=== PATIENT | male | born 1980 | race Caucasian/White ===

== ENCOUNTER 2022-08-24 15:57 | Emergency (ER) | payer OTHER ==
[2022-08-24 16:12] VITALS: BP 118/74; PULSE 88; RESP 18; TEMP 98; BMI 22.3
[2022-08-24] MEDS ORDERED: METHOCARBAMOL 500 MG TABLET PO ONE (16:53)
[2022-08-24] MEDS ORDERED: KETOROLAC TROMETHAMINE 30 MG/1 ML VIAL IM ONE (16:53)
[2022-08-24] MEDS ORDERED: METHOCARBAMOL 500 MG TABLET ONE (16:55)
[2022-08-24] MEDS ORDERED: KETOROLAC TROMETHAMINE 30 MG/1 ML VIAL ONE (16:55)
== END 2022-08-24 17:28 | disposition home or self-care (01) ==
LOC: JERFT 15:57
PROC: 3E0233Z Introduction of Anti-inflammatory into Muscle, Percutaneous Approach (ICD-10-PCS; principal; 2022-08-24)
DX: M54.2 Cervicalgia (principal); M54.50 Low back pain, unspecified; V43.62XA Car passenger injured in collision with other type car in traffic accident, initial encounter
CPT/HCPCS: 72050-TC-FY; 99284-25

== ENCOUNTER 2024-05-16 10:44 | Emergency (ER) | payer OTHER ==
[2024-05-16 10:55] VITALS: TEMP 98.8; BMI 23.7
[2024-05-16] MEDS ORDERED: morphine SULFATE 4 MG/ML VIAL ONE (11:43)
[2024-05-16] MEDS: morphine CARPU-JECT 4 MG/1 ML DISP.SYRIN IVPUSH ONE (11:47)
[2024-05-16] MEDS ORDERED: FAMOTIDINE 20 MG/50 ML IVPB 20 MG/50 ML MG IVPB ONE (13:06)
[2024-05-16] MEDS ORDERED: ONDANSETRON 4 MG/2 ML VIAL ONE (13:06)
[2024-05-16] MEDS: FAMOTIDINE 20 MG/50 ML IVPB 20 MG/50 ML MG IVPB ONE (13:17)
[2024-05-16] MEDS: ONDANSETRON 4 MG/2 ML VIAL IVPUSH ONE (13:17)
[2024-05-16 13:34] LABS: BASO % 0.4 % (0-2.0); EOS % 1.6 % (0-4.5); HEMATOCRIT 42.3 % (35.4-49); HEMOGLOBIN 14.1 GM/dL (11.7-16.9); LYMPH % 12.9 % (8-40); MCH 29.2 pg (25.7-33.7); MCHC 33.3 g/dl (32.0-35.9); MEAN CELL VOLUME 87.6 fl (80-96); MEAN PLT VOLUME 9.5 fl (7.5-11.1); MONO % 11.2 % (3.8-10.2); NEUT % 73.9 % (42.8-82.8); PLATELET COUNT 185 10^3/uL (134-434); RBC 4.83 M/mm3 (4.00-5.60); RDW 14.7 % (11.9-15.9); WHITE BLOOD COUNT 8.7 K/mm3 (4.0-10.0)
[2024-05-16 13:52] LABS: POTASSIUM 4.2 mmol/L (3.5-5.1)
[2024-05-16 13:54] LABS: CALCIUM 9.7 mg/dL (8.5-10.1)
[2024-05-16 13:55] LABS: ALBUMIN 3.7 g/dl (3.4-5.0); BLOOD UREA NITROGEN 15.4 mg/dL (7-18)
[2024-05-16 13:58] LABS: CREATININE 1.5 mg/dL (0.55-1.3)
[2024-05-16 14:00] LABS: BILIRUBIN,TOTAL 0.7 mg/dL (0.2-1); TOT PROT 7.4 g/dl (6.4-8.2)
[2024-05-16 14:10] LABS: HIV INTERPRETATION NEGATIVE (NEGATIVE)
[2024-05-16] MEDS: SODIUM CHLORIDE 1,000 ML IV STA (14:37)
[2024-05-16 14:49] LABS: URINE APPEARANCE CLEAR; URINE COLOR DK YELLOW; URINE GLUCOSE (UA) NEGATIVE (NEGATIVE)
[2024-05-16 14:50] LABS: PH,URINE 5.5 (5.0-8.0); URINE BILIRUBIN SMALL (NEGATIVE); URINE KETONE 40 mg/dl (NEGATIVE); URINE LEUK ESTERASE TRACE (NEGATIVE); URINE NITRITE NEGATIVE (NEGATIVE); URINE PROTEIN TRACE (NEGATIVE); URINE UROBILINOGEN 0.2 mg/dL (0.2-1.0)
[2024-05-16 15:34] VITALS: BP 106/68; PULSE 92; RESP 18
== END 2024-05-16 16:22 | disposition home or self-care (01) ==
LOC: JER 10:44
PROC: 3E033GC Introduction of Other Therapeutic Substance into Peripheral Vein, Percutaneous Approach (ICD-10-PCS; principal; 2024-05-16)
PROC: 3E033GC Introduction of Other Therapeutic Substance into Peripheral Vein, Percutaneous Approach (ICD-10-PCS; 2024-05-16)
PROC: 3E033NZ Introduction of Analgesics, Hypnotics, Sedatives into Peripheral Vein, Percutaneous Approach (ICD-10-PCS; 2024-05-16)
PROC: 3E0337Z Introduction of Electrolytic and Water Balance Substance into Peripheral Vein, Percutaneous Approach (ICD-10-PCS; 2024-05-16)
DX: N50.812 Left testicular pain (principal); R10.84 Generalized abdominal pain; R50.9 Fever, unspecified; R11.2 Nausea with vomiting, unspecified; Z20.822 Contact with and (suspected) exposure to COVID-19
CPT/HCPCS: 0241U-QW; 36415; 76870-TC; 80053; 81003; 83690; 85025; 86803; 87086; 87389; 99284-25